=== PATIENT | male | born 1975 | race Two or more races ===

== ENCOUNTER 2016-12-02 06:41 | Emergency (ER) | payer BC ==
[~2016-12-02] VITALS: Ht 182.9 cm; Wt 120.4 kg
[~2016-12-02 06:41] MED LIST: CLIN300C OR; IBUP800T PO; TRAM50TA2 PO; VICO5TAB PO
[2016-12-02] MEDS ORDERED: ONDANSETRON 4MG/2ML VIAL (J2405) IV ONE (07:15)
[2016-12-02] MEDS ORDERED: NS 1,000 ML IV ONE (07:15)
[2016-12-02 07:41] LABS: BASO % 0.4 % (0.0-1.0); EOS # 0.1 K/mm3 (0.0-0.50); EOS % 1.2 % (0.0-3.0); LARGE UNSTAINED CELL # 0.1 K/mm3 (0.0-0.4); LARGE UNSTAINED CELL % 1.2 % (0.0-4.0); LYMPH # 0.9 K/mm3 (1.5-4.5); LYMPH % 12.2 % (24.0-44.0); MEAN CORPUSCULAR HEMOGLOBIN 29.5 pg (27.0-33.0); MEAN CORPUSCULAR VOLUME 86.8 fl (80.0-96.0); MONO # 0.4 K/mm3 (0.0-0.8); MONO % 5.8 % (0.0-5.0); NEUTROPHILS % 79.2 % (36.0-66.0); PLATELET COUNT, AUTOMATED 241 k/mm3 (150-450); WHITE BLOOD COUNT 7.6 K/mm3 (4.0-10.0)
[2016-12-02 07:44] LABS: ALBUMIN 3.7 GM/DL (3.2-5.2); ALBUMIN/GLOBULIN RATIO 1.16 (1.00-1.93); ALKALINE PHOSPHATASE 55 U/L (45-117); ALT/SGPT 33 U/L (12-78); ANION GAP 8 MEQ/L (8-16); AST/SGOT 19 U/L (15-37); BILIRUBIN,DIRECT 0.2 MG/DL (0.0-0.2); BILIRUBIN,TOTAL 0.7 MG/DL (0.2-1.0); BLOOD UREA NITROGEN 14 MG/DL (7-18); CALCIUM LEVEL 8.7 MG/DL (8.5-10.1); CARBON DIOXIDE LEVEL 26 MEQ/L (21-32); CHLORIDE LEVEL 109 MEQ/L (98-107); CREATININE FOR GFR 0.97 MG/DL (0.70-1.30); GLOMERULAR FILTRATION RATE > 60.0 (>60); GLUCOSE, FASTING 92 MG/DL (70-105); POTASSIUM SERUM 4.2 MEQ/L (3.5-5.1); SODIUM LEVEL 143 MEQ/L (136-145); TOTAL PROTEIN 6.9 GM/DL (6.4-8.2)
--- NOTE | 2016-12-02 08:18 | REP ---
Emergency scrotal ultrasound for right testicular pain: The testes are normal size. Right testis measures 4.8 x 2.5 x 3.7 cm. Left testis measures 4.8 x 2.1 x 3.8 cm. The testicular parenchyma is homogeneous bilaterally. There are no testicular masses. There is vascular flow in both testes with the Doppler resistive index of the intraparenchymal arteries of the left testis measuring 0.50 and of the right testis 0.55. The the right and left epididymal heads are unremarkable. No epididymal head cysts. No evidence of increased vascular flow type the right and left epididymal head. I suspect there are bilateral varicoceles. Impression: There is vascular flow in both testes. There are no testicular masses. No hydrocele. No evidence of increased vascular flow to the right and left testes are right and left epididymi. A bilateral varicoceles are suspected. Signed by Lance Crabtree MD 12/02/2016 08:09 A
[2016-12-02] MEDS ORDERED: MORPHINE 4 MG/ML 1ML SYRINGE IV ONE (08:30)
--- NOTE | 2016-12-02 09:03 | REP ---
CT ABDOMEN AND PELVIS WITHOUT IV CONTRAST: CT abdomen and pelvis performed without oral or IV contrast, with sagittal and coronal reconstruction images also performed. The visualized lung bases show a mild to moderate right pleural effusion with adjacent atelectasis/infiltrate. The liver, gallbladder, spleen, adrenals and pancreas are grossly unremarkable. There is very mild right hydroureteronephrosis caused by a 5 mm calculus at the right ureterovesical junction. There is no abdominal aortic aneurysm. There is no adenopathy. There is no free air or free fluid. There is no evidence of appendicitis. There is sigmoid diverticulosis without evidence of acute diverticulitis. No pelvic mass is seen. IMPRESSION: There is a 5 mm calculus at the right ureterovesical junction causing very mild right hydroureteronephrosis. Mild to moderate right pleural effusion with mild adjacent right basilar atelectasis/infiltrate. Signed by Lance Mena MD 12/02/2016 05:05 P
[2016-12-02 09:31] LABS: MICROSCOPIC INDICATED? MAN YES (NO)
[2016-12-02 09:35] LABS: MICROSCOPIC EXAM PERFORMED
[2016-12-02 09:36] LABS: BACTERIA, URINE SMALL AMOUNT; HYALINE CAST, URINE NONE SEEN /lpf (0-1); RBC, URINE 15-20 /hpf (0-3); SQUAMOUS EPITHELIAL CELL URINE NONE SEEN /hpf (SMALL AMT); WBC, URINE 0-1 /hpf (0-3)
[2016-12-02] MEDS ORDERED: ONDA4TAB6 PO (09:56)
[2016-12-02] MEDS ORDERED: NORCOTAB PO (09:56)
[2016-12-02] MEDS ORDERED: FLOM5CAP PO (09:56)
[2016-12-02 10:08] VITALS: BP 125/69
== END 2016-12-02 10:10 | disposition home or self-care (01) ==
LOC: M ED 06:41
DX: N20.1 Calculus of ureter (principal); J90 Pleural effusion, not elsewhere classified; I86.1 Scrotal varices
CPT/HCPCS: 74176; 76870; 80048; 80076; 81000; 85025; 87086; 93976; 96361; 96374; 96375; 99283; J2405

== ENCOUNTER → 2016-12-16 | Outpatient (CLI) | payer BC ==
[~2016-12-16] MED LIST changes: +FLOM5CAP PO; +NORCOTAB PO; +ONDA4TAB6 PO
--- NOTE | 2016-12-16 15:54 | REP ---
Chest x-ray: Two views. History: Pleural effusion. Comparison CT study December 02, 2016. Findings: Frontal and lateral views of the chest do demonstrate blunting of the right lateral and posterior pleural angles consistent with a small right pleural effusion. Heart is not felt to be enlarged. Pulmonary vasculature is not increased. Pleural angles are sharp on the left. No hilar or mediastinal mass is seen. No bony destructive lesion is seen. Impression: Small right pleural effusion. Otherwise no acute disease. Signed by Len Layton MD 12/16/2016 04:59 P
== END ==
LOC: M ADAMS 13:42
PROVIDERS: ATTEND Family Medicine
DX: J90 Pleural effusion, not elsewhere classified (principal)

== ENCOUNTER → 2016-12-29 | Outpatient (REF) | payer BC ==
[2016-12-29 19:26] LABS: INR 0.9
== END ==
LOC: M SFHCADAM 15:12
PROVIDERS: ATTEND Family Medicine
DX: J90 Pleural effusion, not elsewhere classified (principal)

== ENCOUNTER → 2017-01-04 | Outpatient (CLI) | payer BC ==
[~2017-01-04] MED LIST changes: +ACETAMINOPHEN 325 MG TAB As Ordered ONE
[2017-01-04 13:11] LABS: LDH, BODY FLUID 247 U/L (NOT ESTABLISHED); TOTAL PROTEIN, BODY FLUID 5.1 G/DL (NOT ESTABLISHED)
[2017-01-04 15:21] LABS: RBC PLEURAL FLUID 16 (<10mm3 cells/uL); TNC PLEURAL FLUID 1988 cells/uL (0-20)
[2017-01-04 15:28] LABS: TOTAL PROTEIN 7.4 GM/DL (6.4-8.2)
[2017-01-04 15:31] LABS: BF DIFF IF INDICATED? YES (NO)
--- NOTE | 2017-01-04 15:32 | REP ---
ULTRASOUND GUIDED RIGHT THORACENTESIS: The procedure was performed under the direct supervision of Dr. Layton. The risks and benefits of the procedure were explained to the patient and informed consent was obtained. The right pleural effusion was localized using ultrasound guidance. The skin was prepped and draped in a sterile fashion. 1% lidocaine was used as a local anesthetic. Using ultrasound guidance an 8 Cameroonian multi-side hole catheter was inserted using Trocar technique. 230 mL of red tinged fluid was withdrawn and sent to the lab. The patient tolerated the procedure well and there were no immediate complications. After the appropriate amount of monitored convalescence the patient was discharged from the department. Reviewed by SENG Driscoll 01/04/2017 03:37 PEdited and Signed by Len Layton MD 01/04/2017 05:17 P
--- NOTE | 2017-01-04 16:43 | REP ---
Chest x-ray: Two views. History: Status post ultrasound-guided thoracentesis on the right. Comparison chest x-ray is December 16, 2016. Findings: The lungs are symmetrically aerated. Pleural angles are sharp on the current radiograph. The previously noted right pleural angle blunting is resolved. No infiltrate is seen. Heart is not enlarged. There is no evidence of pneumothorax. Impression: No complication identified. Signed by Len Layton MD 01/04/2017 04:34 P
[2017-01-05 09:07] LABS: CC BF DIFF EXAM CYTOCENTRIFUGE
== END | disposition home or self-care (01) ==
LOC: M RADPRO 11:36
PROVIDERS: ATTEND Family Medicine
DX: Z79.899 Other long term (current) drug therapy (principal); Z91.018 Allergy to other foods

== ENCOUNTER → 2017-05-05 | Outpatient (CLI) | payer BC | LOC: M ADAMS 14:25 | DX: J90 Pleural effusion, not elsewhere classified (principal) | CPT/HCPCS: 71046 ==

== ENCOUNTER 2017-05-10 16:38 | Emergency (ER) | payer BC ==
[2017-05-10 20:02] LABS: BASO # 0.1 10^3/uL (0.0-0.2); BASO % 0.6 % (0.0-1.0); EOS # 0.2 10^3/uL (0.0-0.50); EOS % 1.9 % (0.0-3.0); HEMATOCRIT 47.8 % (42.0-52.0); HEMOGLOBIN 16.3 g/dl (14.0-18.0); IMMATURE GRANULOCYTE # 0.1 10^3/uL (0-0); IMMATURE GRANULOCYTE % 0.6 % (0-0); LYMPH # 3.2 10^3/uL (1.5-4.5); LYMPH % 29.5 % (24.0-44.0); MEAN CORPUSCULAR HEMOGLOBIN 29.1 pg (27.0-33.0); MEAN CORPUSCULAR HGB CONC 34.1 g/dl (32.0-36.5); MEAN CORPUSCULAR VOLUME 85.4 fl (80.0-96.0); MONO % 8.9 % (0.0-5.0); NEUTROPHILS # 6.3 10^3/uL (1.8-7.7); NEUTROPHILS % 58.5 % (36.0-66.0); PLATELET COUNT, AUTOMATED 262 10^3/uL (150-450); WHITE BLOOD COUNT 10.8 10^3/uL (4.0-10.0)
[2017-05-10 20:16] LABS: SUSPECT SAMPLE POS FLAG
[2017-05-10 20:21] LABS: INR 0.92; PARTIAL THROMBOPLASTIN TIME 30.5 SECONDS (26.8-37.9); PROTHROMBIN TIME 12.4 SECONDS (12.4-14.5)
[2017-05-10 20:28] LABS: ALBUMIN 4.4 GM/DL (3.2-5.2); ALBUMIN/GLOBULIN RATIO 1.16 (1.00-1.93); ALKALINE PHOSPHATASE 57 U/L (45-117); ALT/SGPT 58 U/L (12-78); ANION GAP 6 MEQ/L (8-16); AST/SGOT 30 U/L (7-37); BILIRUBIN,DIRECT 0.1 MG/DL (0.0-0.2); BILIRUBIN,TOTAL 0.5 MG/DL (0.2-1.0); BLOOD UREA NITROGEN 18 MG/DL (7-18); CALCIUM LEVEL 9.1 MG/DL (8.5-10.1); CARBON DIOXIDE LEVEL 28 MEQ/L (21-32); CHLORIDE LEVEL 103 MEQ/L (98-107); CPK CREATINE PHOSPHOKINASE 334 U/L (39-308); CREATININE FOR GFR 0.95 MG/DL (0.70-1.30); GLOMERULAR FILTRATION RATE > 60.0 (>60); GLUCOSE, FASTING 89 MG/DL (70-105); POTASSIUM SERUM 4.3 MEQ/L (3.5-5.1); SODIUM LEVEL 137 MEQ/L (136-145); TOTAL PROTEIN 8.2 GM/DL (6.4-8.2); TROPONIN I < 0.02 NG/ML (< 0.10)
[2017-05-10 20:32] LABS: CK-MB VALUE MASS 8.4 NG/ML (0.0-3.6); MB/CK RELATIVE INDEX 2.51 (< OR =4); NT-PRO BNP 12 PG/ML (<125)
[2017-05-10] MEDS ORDERED: ISOVUE-370 76% 100ML VIAL (Q9967) As Ordered (20:56)
== END 2017-05-10 22:24 | disposition home or self-care (01) ==
LOC: M ED 16:38
DX: J90 Pleural effusion, not elsewhere classified (principal); M54.9 Dorsalgia, unspecified; G89.29 Other chronic pain; Z87.891 Personal history of nicotine dependence; Z88.8 Allergy status to other drugs, medicaments and biological substances
CPT/HCPCS: Q9967

== ENCOUNTER 2017-10-28 17:52 | Emergency (ER) | payer BC ==
[2017-10-28 19:04] LABS: BASO # 0.1 10^3/uL (0.0-0.2); BASO % 0.6 % (0.0-1.0); EOS # 0.2 10^3/uL (0.0-0.50); EOS % 1.7 % (0.0-3.0); HEMATOCRIT 45.1 % (42.0-52.0); HEMOGLOBIN 15.5 g/dl (13.5-17.5); IMMATURE GRANULOCYTE % 0.2 % (0-3.0); LYMPH # 1.4 10^3/uL (1.5-4.5); LYMPH % 16.6 % (24.0-44.0); MEAN CORPUSCULAR HEMOGLOBIN 29.4 pg (27.0-33.0); MEAN CORPUSCULAR HGB CONC 34.4 g/dl (32.0-36.5); MEAN CORPUSCULAR VOLUME 85.4 fl (80.0-96.0); MONO # 1.3 10^3/uL (0.0-0.8); MONO % 14.4 % (0.0-5.0); NEUTROPHILS # 5.8 10^3/uL (1.8-7.7); NEUTROPHILS % 66.5 % (36.0-66.0); PLATELET COUNT, AUTOMATED 211 10^3/uL (150-450); RED BLOOD COUNT 5.28 10^6/uL (4.30-6.10); RED CELL DISTRIBUTION WIDTH 13.3 % (11.5-14.5); WHITE BLOOD COUNT 8.7 10^3/uL (4.0-10.0)
[2017-10-28 19:20] LABS: INR 0.92; PROTHROMBIN TIME 12.5 SECONDS (12.1-14.4)
[2017-10-28 19:23] LABS: LACTIC ACID SEPSIS PROTOCOL 1.3 MMOL/L (0.4-2.0)
[2017-10-28 20:24] LABS: ALBUMIN 4.1 GM/DL (3.2-5.2); ALBUMIN/GLOBULIN RATIO 1.03 (1.00-1.93); ALKALINE PHOSPHATASE 57 U/L (45-117); ALT/SGPT 49 U/L (12-78); ANION GAP 8 MEQ/L (8-16); AST/SGOT 27 U/L (7-37); BILIRUBIN,DIRECT 0.1 MG/DL (0.0-0.2); BILIRUBIN,TOTAL 0.6 MG/DL (0.2-1.0); BLOOD UREA NITROGEN 13 MG/DL (7-18); CALCIUM LEVEL 8.5 MG/DL (8.5-10.1); CARBON DIOXIDE LEVEL 27 MEQ/L (21-32); CHLORIDE LEVEL 105 MEQ/L (98-107); CK-MB VALUE MASS 5.8 NG/ML (<3.6); CPK CREATINE PHOSPHOKINASE 449 U/L (39-308); CREATININE FOR GFR 1.08 MG/DL (0.70-1.30); GLOMERULAR FILTRATION RATE > 60.0 (>60); GLUCOSE, FASTING 89 MG/DL (70-100); MB/CK RELATIVE INDEX 1.29 (< OR =4); NT-PRO BNP 29 PG/ML (<125); POTASSIUM SERUM 3.7 MEQ/L (3.5-5.1); SODIUM LEVEL 140 MEQ/L (136-145); TOTAL PROTEIN 8.1 GM/DL (6.4-8.2); TROPONIN I < 0.02 NG/ML (< 0.10)
[2017-10-28] MEDS ORDERED: ISOVUE-370 76% 100ML VIAL (Q9967) As Ordered (20:31)
== END 2017-10-28 22:05 | disposition home or self-care (01) ==
LOC: M ED 17:52
DX: J06.9 Acute upper respiratory infection, unspecified (principal); R59.0 Localized enlarged lymph nodes; I51.7 Cardiomegaly; Z87.09 Personal history of other diseases of the respiratory system; M54.9 Dorsalgia, unspecified; Z87.442 Personal history of urinary calculi; Z87.891 Personal history of nicotine dependence; Z88.8 Allergy status to other drugs, medicaments and biological substances
CPT/HCPCS: Q9967

== ENCOUNTER 2019-07-25 11:25 | Emergency (ER) | payer BC, OTHER, SELFPAY ==
[~2019-07-25] VITALS: Ht 182.9 cm; Wt 139.4 kg
[~2019-07-25 11:25] MED LIST changes: -ACETAMINOPHEN 325 MG TAB As Ordered ONE; +FLOM0.4C39 PO; -FLOM5CAP PO; +HYDR-3715 PO; -NORCOTAB PO; +PROAAER10 INH; +TESS100C PO; +ZITHTAB PO
[2019-07-25] MEDS ORDERED: MUCINEX (11:35)
[2019-07-25 12:47] LABS: BASO # 0.1 10^3/uL (0.0-0.2); BASO % 0.6 % (0.0-1.0); EOS # 0.2 10^3/uL (0.0-0.5); EOS % 1.8 % (0.0-3.0); HEMATOCRIT 50.8 % (42.0-52.0); HEMOGLOBIN 16.9 g/dl (13.5-17.5); LYMPH # 1.3 10^3/uL (1.5-5.0); LYMPH % 11.3 % (24.0-44.0); MEAN CORPUSCULAR HEMOGLOBIN 28.8 pg (27.0-33.0); MEAN CORPUSCULAR HGB CONC 33.3 g/dl (32.0-36.5); MEAN CORPUSCULAR VOLUME 86.7 fl (80.0-96.0); MONO # 1.5 10^3/uL (0.0-0.8); MONO % 12.8 % (0.0-5.0); NEUTROPHILS # 8.7 10^3/uL (1.5-8.5); NEUTROPHILS % 72.9 % (36.0-66.0); PLATELET COUNT, AUTOMATED 234 10^3/uL (150-450); RED BLOOD COUNT 5.86 10^6/uL (4.30-6.10); WHITE BLOOD COUNT 11.9 10^3/uL (4.0-10.0)
--- NOTE | 2019-07-25 14:23 | REP ---
CHEST PORTABLE: AP portable view of the chest is performed and compared to a prior study of 05/10/2017. There appears to be cardiomegaly. Infiltrate is seen in the right lung base. There is a small amount of right pleural fluid or thickening. Left lung is clear. Mediastinal silhouette is unremarkable and unchanged. IMPRESSION: Right basilar infiltrate. Small amount of right pleural fluid or thickening. Cardiomegaly. Electronically Signed by Lance Mena MD 07/25/2019 03:10 P
[2019-07-25 14:41] VITALS: BP 146/80
[2019-07-25] MEDS ORDERED: AUGM12TA11 PO (14:50)
[2019-07-25] MEDS ORDERED: AZIT-12 PO (14:50)
--- NOTE | 2019-07-25 15:30 | REP ---
CT CHEST WITHOUT IV CONTRAST: CT chest performed without IV contrast. Sagittal and coronal reconstruction images are performed. Comparison made to a prior CT of the chest . There is mild elevation of the right hemidiaphragm. Linear scarring is seen in the right lung base. Mild scattered calcific densities are seen along the posterior pleura on the right. Focal ill-defined nodular opacity along the right posterior pleural surface inferiorly measures about 3.5 cm in maximum diameter. Findings are likely secondary to prior pleurodesis. A couple of tiny calcified granulomas are seen in the right lung. There is minimal scaring in the left lower lobe. The heart is not significantly enlarged. There is no axillary or mediastinal adenopathy. There is no thoracic aortic aneurysm. There is no pleural or pericardial effusion. In the visualized upper abdomen, there is a 2.4 cm gallstone seen in the gallbladder without other significant findings. There are mild degenerative changes of the spine. IMPRESSION: Mild scattered pleural calcifications posteriorly on the right with ill-defined pleural-based nodular opacity posteriorly and inferiorly on the right approximately 3.5 cm in maximum diameter. Findings are likely secondary to prior pleurodesis. Followup of the nodular opacity is recommended. Otherwise, there is mild fibrotic scarring bilaterally with a few tiny calcified granulomas in the right lung. Electronically Signed by Lance Mena MD 07/25/2019 03:50 P
--- NOTE | 2019-07-26 13:52 | ED PDOC ---
Post-Departure Follow-Up dr goetz faxed formal report of ct chest for fu William Marcelino MD Jul 26, 2019 13:52
== END 2019-07-25 15:14 | disposition home or self-care (01) ==
LOC: M ED 11:25
DX: R91.8 Other nonspecific abnormal finding of lung field (principal); J06.9 Acute upper respiratory infection, unspecified; Z88.8 Allergy status to other drugs, medicaments and biological substances; Z87.891 Personal history of nicotine dependence

== ENCOUNTER 2020-04-08 16:06 | Emergency (ER) | payer OTHER, SELFPAY ==
[~2020-04-08] VITALS: Ht 182.9 cm; Wt 134.7 kg
[~2020-04-08 16:06] MED LIST changes: +AUGM12TA11 PO; +AZIT-12 PO; +MUCINEX
[2020-04-08 16:47] LABS: BASO # 0.1 10^3/uL (0.0-0.2); BASO % 0.5 % (0.0-1.0); EOS # 0.1 10^3/uL (0.0-0.5); EOS % 1.4 % (0.0-3.0); HEMATOCRIT 49.7 % (42.0-52.0); HEMOGLOBIN 16.1 g/dl (13.5-17.5); LYMPH # 2.2 10^3/uL (1.5-5.0); LYMPH % 22.3 % (24.0-44.0); MEAN CORPUSCULAR HEMOGLOBIN 28.4 pg (27.0-33.0); MEAN CORPUSCULAR HGB CONC 32.4 g/dl (32.0-36.5); MEAN CORPUSCULAR VOLUME 87.7 fl (80.0-96.0); MONO # 0.9 10^3/uL (0.0-0.8); MONO % 8.9 % (0.0-5.0); NEUTROPHILS # 6.5 10^3/uL (1.5-8.5); NEUTROPHILS % 66.5 % (36.0-66.0); PLATELET COUNT, AUTOMATED 235 10^3/uL (150-450); RED BLOOD COUNT 5.67 10^6/uL (4.30-6.10); WHITE BLOOD COUNT 9.7 10^3/uL (4.0-10.0)
[2020-04-08 17:18] LABS: ALBUMIN 4.2 GM/DL (3.2-5.2); ALT/SGPT 47 U/L (12-78); BILIRUBIN,DIRECT 0.1 MG/DL (0.0-0.2); BILIRUBIN,TOTAL 0.4 MG/DL (0.2-1.0); BLOOD UREA NITROGEN 21 MG/DL (7-18); CALCIUM LEVEL 9.1 MG/DL (8.5-10.1); CARBON DIOXIDE LEVEL 30 MEQ/L (21-32); CHLORIDE LEVEL 105 MEQ/L (98-107); CK-MB VALUE MASS 8.6 NG/ML (<3.6); CPK CREATINE PHOSPHOKINASE 411 U/L (39-308); CREATININE FOR GFR 1.45 MG/DL (0.70-1.30); FREE T4 0.91 NG/DL (0.76-1.46); GLOMERULAR FILTRATION RATE 56.3 (>60); GLUCOSE, FASTING 88 MG/DL (70-100); MB/CK RELATIVE INDEX 2.09 (< OR =4); NT-PRO BNP 22 PG/ML (<125); SODIUM LEVEL 137 MEQ/L (136-145); TOTAL PROTEIN 8.2 GM/DL (6.4-8.2); TROPONIN I < 0.02 NG/ML (< 0.10)
[2020-04-08 17:22] LABS: RSV AMPLIFICATION NEGATIVE (NEGATIVE)
[2020-04-08] MEDS ORDERED: ISOVUE-370 76% 100ML VIAL As Ordered ONE (17:30)
--- NOTE | 2020-04-08 18:26 | REPVR ---
PROCEDURE INFORMATION: Exam: CT Angiography Chest With Contrast Exam date and time: 04/08/2020 5:38 PM Age: 45 years old Clinical indication: Chest pain; Additional info: Pleuritic R chest pain SOB TECHNIQUE: Imaging protocol: Computed tomographic angiography of the chest with intravenous contrast. 3D rendering (Not supervised by radiologist): MIP and/or 3D reconstructed images were created by the technologist. Radiation optimization: All CT scans at this facility use at least one of these dose optimization techniques: automated exposure control; mA and/or kV adjustment per patient size (includes targeted exams where dose is matched to clinical indication); or iterative reconstruction. Contrast material: ISO 370; Contrast volume: 100 ml; Contrast route: INTRAVENOUS (IV); COMPARISON: CT ANGIO CHEST 10/28/2017 8:36 PM FINDINGS: Pulmonary arteries: There is opacification of the pulmonary arteries with no evidence of pulmonary embolus. Aorta: There is opacification of the aorta which appears intact. Lungs: The left lung appears clear. There is a 1.4 cm oval nodular area right posterior lung base. At the right posterior gutter region of the lung there is a 3.6 cm x 2.5 cm round density new since 2018 which could be a malignant nodule. A round pneumonia is another consideration and CT guided biopsy of this area should be considered. Pleural space: There is no evidence of pneumothorax or pleural effusion. Heart: There is no evidence of pericardial effusion. There is moderate cardiomegaly. Lymph nodes: Lymphoid tissue noted at the right infrahilar region. Gallbladder and bile ducts: There is a 2.3 cm round marginally calcified gallstone in the neck of the gallbladder. Bones/joints: There is mild kyphosis of the thoracic spine and prominent bridging osteophytes. Soft tissues: Unremarkable. IMPRESSION: 1. No evidence of pulmonary embolus. 2. Moderate cardiomegaly. 3. 1.4 cm and 3.6 cm density at the right lung base could be related to a malignant neoplasm and recommend CT guided biopsy. 4. 2.3 cm gallstone. Electronically signed by: Fermín Benoit On 04/08/2020 18:26:27 PM
[2020-04-08 19:08] VITALS: O2SAT 97
[2020-04-08 19:30] VITALS: BP 161/97
--- NOTE | 2020-04-09 13:25 | ECGEPIP ---
[facility] - ED Test Date: 2020-04-08 Pat Name: MATTHEW RODRIGUES Department: Room: - Gender: Male Station Captain: delbert : 1975 Requested By: KAYLA Muñiz Order Number: [id number] Reading MD: Erick Hampton Measurements Intervals [place] Rate: 69 P: 27 NH: 150 QRS: 54 QRSD: 105 T: 58 QT: 355 QTc: 383 Interpretive Statements SINUS RHYTHM NSTTW ABNORMALITY(S) SIMILAR TO 10/28/17 Electronically Signed on 04-09-2020 13:25:32 EST by Erick Hampton
== END 2020-04-08 19:44 | disposition home or self-care (01) ==
LOC: M ED 16:06
DX: R91.8 Other nonspecific abnormal finding of lung field (principal); R06.02 Shortness of breath; Z87.09 Personal history of other diseases of the respiratory system; Z88.8 Allergy status to other drugs, medicaments and biological substances
CPT/HCPCS: 36415; 71275; 80048; 80076; 82550; 82553; 83880; 84439; 84443; 84484; 85025; 87631; 93005; 93041; 94760; 99285; Q9967

== ENCOUNTER 2020-04-30 08:03 | Emergency (ER) | payer OTHER ==
[~2020-04-30] VITALS: Ht 182.9 cm; Wt 124.9 kg
[2020-04-30] MEDS ORDERED: AUGM875T28 PO (08:39)
[2020-04-30] MEDS ORDERED: NS 1,000 ML IV ONE (09:15)
[2020-04-30] MEDS ORDERED: ACETAMINOPHEN 325 MG TAB PO ONE (09:15)
--- NOTE | 2020-04-30 09:35 | REP ---
INDICATION: DYSPNEA/COUGH. COMPARISON: Comparison study July 25, 2019. Comparison CT study April 08, 2020. TECHNIQUE: Portable sitting AP technique.. FINDINGS: The left lung remains well inflated and clear. There is pleuroparenchymal fibrosis in the right base and there is volume loss the right hemithorax. These findings are unchanged from comparison radiograph and comparison CT staging study. There is chronic pleuroparenchymal change in the right lung base. No new infiltrate. Heart is not enlarged.. IMPRESSION: Chronic volume loss and pleuroparenchymal changes right lung base. No new infiltrate.. <Electronically signed by Jn Layton > 04/30/20 0931
[2020-04-30 10:08] LABS: BASO % 0.3 % (0.0-1.0); EOS # 0.1 10^3/uL (0.0-0.5); EOS % 1.4 % (0.0-3.0); HEMATOCRIT 52.9 % (42.0-52.0); HEMOGLOBIN 17.5 g/dl (13.5-17.5); LYMPH # 1.3 10^3/uL (1.5-5.0); LYMPH % 34.2 % (24.0-44.0); MEAN CORPUSCULAR HEMOGLOBIN 29.2 pg (27.0-33.0); MEAN CORPUSCULAR HGB CONC 33.1 g/dl (32.0-36.5); MEAN CORPUSCULAR VOLUME 88.3 fl (80.0-96.0); MONO # 0.5 10^3/uL (0.0-0.8); MONO % 13.9 % (0.0-5.0); NEUTROPHILS # 1.8 10^3/uL (1.5-8.5); NEUTROPHILS % 49.9 % (36.0-66.0); PLATELET COUNT, AUTOMATED 188 10^3/uL (150-450); RED BLOOD COUNT 5.99 10^6/uL (4.30-6.10); WHITE BLOOD COUNT 3.7 10^3/uL (4.0-10.0)
[2020-04-30] MEDS ORDERED: LOSA50TA88 (10:25)
[2020-04-30 10:38] LABS: ALBUMIN 4.1 GM/DL (3.2-5.2); ALT/SGPT 208 U/L (12-78); BILIRUBIN,DIRECT 0.1 MG/DL (0.0-0.2); BILIRUBIN,TOTAL 0.5 MG/DL (0.2-1.0); BLOOD UREA NITROGEN 12 MG/DL (7-18); CALCIUM LEVEL 8.7 MG/DL (8.5-10.1); CARBON DIOXIDE LEVEL 29 MEQ/L (21-32); CHLORIDE LEVEL 105 MEQ/L (98-107); CK-MB VALUE MASS 5.3 NG/ML (<3.6); CPK CREATINE PHOSPHOKINASE 253 U/L (39-308); CREATININE FOR GFR 0.94 MG/DL (0.70-1.30); GLOMERULAR FILTRATION RATE > 60.0 (>60); GLUCOSE, FASTING 93 MG/DL (70-100); MB/CK RELATIVE INDEX 2.09 (< OR =4); NT-PRO BNP 14 PG/ML (<125); POTASSIUM SERUM 4.2 MEQ/L (3.5-5.1); SODIUM LEVEL 138 MEQ/L (136-145); THYROXINE (T4) 7.1 UG/DL (4.5-12.0); TROPONIN I < 0.02 NG/ML (< 0.10)
[2020-04-30 10:53] LABS: C REACTIVE PROTEIN QUANTITATIV < 0.30 MG/DL (0.00-0.30); FERRITIN 127 NG/ML (26-388); LDH LACTATE DEHYDROGENASE 222 U/L (87-241)
[2020-04-30 11:28] VITALS: O2SAT 99
[2020-04-30] MEDS ORDERED: ISOVUE-370 76% 100ML VIAL As Ordered ONE (11:37)
[2020-04-30 11:45] VITALS: BP 164/96
[2020-04-30] MEDS ORDERED: LOSARTAN 50MG TABLET PO ONE (11:45)
--- NOTE | 2020-04-30 12:10 | REP ---
INDICATION: R lower pleuritic CP, h/o lung nodules, +COVID COMPARISON: 04/08/2020, 07/25/2019, 10/28/2017 TECHNIQUE: Axial contrast enhanced images from the thoracic inlet to the upper abdomen using pulmonary embolus technique with multiplanar re-formations. 75 ml Isovue 370 intravenous contrast material administered without complication. This CT examination was performed using the following dose reduction techniques: Automated exposure control, adjustment of mA and/or kv according to the patient's size, and use of iterative reconstruction technique. FINDINGS: There is no evidence for pulmonary embolus. Thoracic aorta is without aneurysm or dissection. Heart and pericardium are normal. The left hemithorax is well aerated and clear. The right hemithorax demonstrates volume loss with chronic appearing pleuroparenchymal changes including suspected 3.5 cm subpleural opacity in the posterior right sulcus suggesting chronic rounded atelectasis all of which may be related to the given history of prior talc pleurodesis. No significant adenopathy. Tracheobronchial tree is relatively patent. Surrounding musculoskeletal structures are intact. Upper abdomen demonstrates normal bilateral adrenal glands and suggestions for cholelithiasis. IMPRESSION: 1. No evidence for pulmonary embolus. Normal thoracic aorta. 2. Chronic volume loss and pleuroparenchymal changes involving the right hemithorax including 3.5 cm subpleural opacity at the right sulcus suggesting chronic rounded atelectasis. Findings appear relatively unchanged through 07/25/2019. <Electronically signed by Gabe Ewing > 04/30/20 0119
[2020-04-30] MEDS ORDERED: PROAAER10 INH (12:56)
[2020-04-30 13:17] VITALS: BP 160/98
--- NOTE | 2020-05-01 21:23 | ECGEPIP ---
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
== END 2020-04-30 13:20 | disposition home or self-care (01) ==
LOC: M ED 08:03
DX: U07.1 COVID-19 (principal); R91.8 Other nonspecific abnormal finding of lung field; I10 Essential (primary) hypertension; Z87.09 Personal history of other diseases of the respiratory system; Z79.899 Other long term (current) drug therapy; Z88.8 Allergy status to other drugs, medicaments and biological substances
CPT/HCPCS: 36415; 71045; 71275; 80048; 80076; 82550; 82553; 82728; 83605; 83615; 83880; 84436; 84443; 84484; 85025; 85379; 86140; 87040; 87486; 87581; 87633; 87798; 93005; 93041; 94760; 99284; Q9967

== ENCOUNTER → 2020-06-18 | Outpatient (CLI) | payer OTHER ==
[~2020-06-18] MED LIST changes: +AUGM875T28 PO; +LOSA50TA88
== END ==
LOC: M PLALAB 14:57
PROVIDERS: ATTEND Internal Medicine Pulmonary Disease
DX: R91.8 Other nonspecific abnormal finding of lung field (principal)

== ENCOUNTER 2020-06-24 18:29 | Emergency (ER) | payer OTHER ==
[~2020-06-24] VITALS: Ht 182.9 cm; Wt 133.1 kg
[2020-06-24] MEDS ORDERED: PRED10TA2 (18:38)
[2020-06-24] MEDS ORDERED: ADVA230A (18:38)
--- NOTE | 2020-06-24 19:19 | REP ---
INDICATION: DYSPNEA/COUGH. COMPARISON: 04/30/2020, 07/25/2019. TECHNIQUE: SINGLE PORTABLE AP VIEW OF THE CHEST WAS PERFORMED. FINDINGS: There is chronic parenchymal opacity in the right base, unchanged.The heart and mediastinum are unchanged. Left lung is clear. IMPRESSION: Stable chronic changes on the right. No definite superimposed acute infiltrate. <Electronically signed by Lance Mena > 06/24/201913
[2020-06-24 19:54] LABS: BASO % 0.3 % (0.0-1.0); EOS # 0.1 10^3/uL (0.0-0.5); EOS % 0.7 % (0.0-3.0); HEMOGLOBIN 15.2 g/dl (13.5-17.5); LYMPH # 2.3 10^3/uL (1.5-5.0); MEAN CORPUSCULAR HEMOGLOBIN 28.8 pg (27.0-33.0); MEAN CORPUSCULAR VOLUME 87.1 fl (80.0-96.0); MONO # 1.1 10^3/uL (0.0-0.8); MONO % 10.2 % (2.0-8.0); NEUTROPHILS % 66.5 % (36.0-66.0); PLATELET COUNT, AUTOMATED 246 10^3/uL (150-450); RED BLOOD COUNT 5.28 10^6/uL (4.30-6.10); WHITE BLOOD COUNT 10.5 10^3/uL (4.0-10.0)
[2020-06-24] MEDS ORDERED: DOXY100C37 PO (20:01)
[2020-06-24] MEDS ORDERED: DOXYCYCLINE HYCLATE 100MG TABLET PO ONE (20:45)
[2020-06-24 20:55] VITALS: BP 159/91
--- NOTE | 2020-06-26 07:52 | ECGEPIP ---
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
== END 2020-06-24 21:05 | disposition home or self-care (01) ==
LOC: M ED 18:29
DX: R05 Cough (principal); R06.02 Shortness of breath; Z88.8 Allergy status to other drugs, medicaments and biological substances; Z91.018 Allergy to other foods

== ENCOUNTER → 2020-07-06 | Outpatient (CLI) | payer OTHER ==
[~2020-07-06] MED LIST changes: +ADVA230A; +DOXY100C37 PO; +PRED10TA2
--- NOTE | 2020-07-07 09:52 | REP ---
INDICATION: DIAGNOSING LUNG NODULE R91.1. Recurrent right pleural effusion status post talc pleurodesis. History of resection of a soft tissues are, from the right leg. COMPARISON: Comparison chest CT studies are reviewed dated April 30, 2020, April 08, 2020, July 25, 2019, and October 28, 2017.. TECHNIQUE: Sixty minutes following the intravenous injection of a 18.30 mCi dose of F-18 FDG, three-dimensional PET scintigraphy is acquired from the skull base to the proximal thighs. Triplanar noncontrast CT scanning is acquired through the same anatomic range for attenuation correction, and image registration with scan parameters optimized to minimize radiation exposure to the patient. PET scintigraphy and CT datasets were fused and displayed on a workstation with multiplanar and projection display capability. FINDINGS: No abnormal head and neck soft tissue uptake is seen. There are multiple hypermetabolic nodular and linear foci of pleural uptake in the right chest. This is a well-known finding in patients post talc pleurodesis because of ongoing foreign body granulation reaction. Maximum standard uptake value in these multifocal small areas of hypermetabolic uptake ranges from 5.41-11.62. The most avid reaction is in the right posterior lung gutter but this is not related to the 3 cm parenchymal density in the right lower lobe which is above the area of uptake. Maximum SUV value in the right lower lobe parenchymal opacity is 2.67 which is felt to be borderline. This is most likely an area of rounded atelectasis. No hypermetabolic parenchymal uptake lesion is seen. No left-sided pleural lesion is apparent. No mediastinal or hilar thaddeus uptake is appreciated. In the abdomen and pelvis, normal hepatic, splenic, gastrointestinal, and genitourinary FDG accumulation is seen. IMPRESSION: Multiple small foci of hypermetabolic pleural uptake in the right chest consistent with on going foreign body granulation reaction post talc pleurodesis. The 3 cm opacity in the parenchyma of the right lower lobe seen on recent chest CTs shows borderline uptake and is felt to be most compatible with spiral atelectasis. Continued CT follow-up is recommended. <Electronically signed by Jn Layton > 07/07/20 0948
== END ==
LOC: M PLARAD 14:05
PROVIDERS: ATTEND Internal Medicine Pulmonary Disease
DX: R91.1 Solitary pulmonary nodule (principal)

== ENCOUNTER → 2020-07-13 | Outpatient (REF) | payer OTHER ==
[2020-07-13 18:03] LABS: PLATELET COUNT, AUTOMATED 236 10^3/uL (150-450)
[2020-07-13 18:19] LABS: INR 0.95; PROTHROMBIN TIME 12.8 SECONDS (12.5-14.3)
[2020-07-13 18:20] LABS: PARTIAL THROMBOPLASTIN TIME 31.5 SECONDS (24.2-38.5)
== END ==
LOC: M LAB REF 16:42
PROVIDERS: ATTEND Internal Medicine Pulmonary Disease
DX: R91.1 Solitary pulmonary nodule (principal)

== ENCOUNTER → 2020-07-22 | Outpatient (CLI) | payer OTHER ==
[~2020-07-22] MED LIST changes: +ACET-897 PO; -ADVA230A; +ADVA230A INH; +DAYT1LIQ PO; +DEXT118S PO; +LIDOCAINE 1% MDV 20ML VIAL As Ordered ONE; -LOSA50TA88; +LOSA50TA88 PO; +LOSARTAN 50MG TABLET PO ONE; +MUCI600T31 PO; +PERC5TAB12 PO; +SODIUM BICARBONATE 8.4% INJ 50MEQ 50 ML VIAL As Ordered ONE; +VENTAER INH
--- NOTE | 2020-07-22 10:14 | REP ---
INDICATION: POST RIGHT LUNG BIOPSY, 1 VIEW, PA INSPIRATION. COMPARISON: 06/24/2020. TECHNIQUE: PA view chest. FINDINGS: There is no radiographic evidence of a significant pneumothorax status post right lung biopsy. The lungs are unchanged in appearance. The heart mediastinum are unchanged. IMPRESSION: No radiographic evidence of significant pneumothorax status post right lung biopsy. <Electronically signed by Lance Mena > 07/22/20 1010
--- NOTE | 2020-07-22 11:52 | REP ---
INDICATION: POST RIGHT LUNG BIOPSY, 1 VIEW, PA EXPIRATION. COMPARISON: 07/23/2019, 9:57 a.m.. TECHNIQUE: Single PA view chest in expiration. FINDINGS: There is no pneumothorax status post right lung biopsy. Very mild atelectatic changes are seen in each lung base. Remainder of the study is unchanged. IMPRESSION: No pneumothorax status post right lung biopsy. <Electronically signed by Lance Mena > 07/22/20 1144
[2020-07-22 12:02] VITALS: BP 168/87
--- NOTE | 2020-07-22 17:42 | REP ---
INDICATION: RT LOWER LOBE OPACITY. COMPARISON: None. TECHNIQUE: The procedure is performed by Christine Nascimento [facility], under the direct supervision of Dr. Mena. The risks and benefits of the procedure were explained to the patient and informed consent was obtained both orally and written. Directly prior to the start of the procedure, a formal timeout was done in the exam room. The right lower lobe lung mass was localized using CT guidance. Skin was prepped and draped in the usual sterile fashion. Five ml of buffered lidocaine was used as a local anesthetic. FINDINGS: Using CT guidance a 19/20 gauge coaxial needle biopsy system was inserted and advanced into the nodule. Six core biopsy samples were obtained and sent to the lab. CT images obtained directly after the biopsy show evidence of a small pneumothorax. This pneumothorax was followed with serial chest x-rays taken directly after the procedure and 2 hours after that. After the appropriate amount of monitored convalescence the patient was discharged from the department. IMPRESSION: CT-guided right lower lobe lung biopsy. <Electronically signed by Christine Nascimento > 07/22/20 [id number] <Electronically signed by Lance Mena > 07/22/20 [id number]
== END ==
LOC: M IRPRO 08:05
PROVIDERS: ATTEND Internal Medicine Pulmonary Disease
DX: J94.8 Other specified pleural conditions (principal)

== ENCOUNTER 2020-07-23 12:50 | Emergency (ER) | payer OTHER ==
[~2020-07-23] VITALS: Ht 182.9 cm; Wt 131.7 kg
[~2020-07-23 12:50] MED LIST changes: -ACET-897 PO; -LIDOCAINE 1% MDV 20ML VIAL As Ordered ONE; -LOSARTAN 50MG TABLET PO ONE; -PERC5TAB12 PO; -SODIUM BICARBONATE 8.4% INJ 50MEQ 50 ML VIAL As Ordered ONE
[2020-07-23] MEDS ORDERED: ACET-897 PO (13:00)
--- NOTE | 2020-07-23 13:44 | REP ---
INDICATION: SOB, right lung biopsy 07/22/20. COMPARISON: 07/22/2020. TECHNIQUE: SINGLE PORTABLE AP VIEW OF THE CHEST WAS PERFORMED. FINDINGS: Pleural and parenchymal changes in the right lung base are stable. There is no pneumothorax. I see no evidence of acute infiltrate. The heart and mediastinum are unchanged. IMPRESSION: Stable exam. <Electronically signed by Lance Mena > 07/23/20 [id number]
[2020-07-23] MEDS ORDERED: ONDANSETRON 4MG/2ML VIAL IV ONE (14:15)
[2020-07-23] MEDS ORDERED: ISOVUE-370 76% 100ML VIAL As Ordered ONE (14:37)
[2020-07-23 14:44] LABS: BASO # 0.1 10^3/uL (0.0-0.2); BASO % 0.7 % (0.0-1.0); EOS # 0.2 10^3/uL (0.0-0.5); EOS % 1.8 % (0.0-3.0); HEMATOCRIT 50.6 % (42.0-52.0); HEMOGLOBIN 17.1 g/dl (13.5-17.5); LYMPH # 1.8 10^3/uL (1.5-5.0); MEAN CORPUSCULAR HEMOGLOBIN 29.8 pg (27.0-33.0); MEAN CORPUSCULAR HGB CONC 33.8 g/dl (32.0-36.5); MEAN CORPUSCULAR VOLUME 88.2 fl (80.0-96.0); MONO # 0.8 10^3/uL (0.0-0.8); MONO % 9.6 % (2.0-8.0); NEUTROPHILS # 5.5 10^3/uL (1.5-8.5); NEUTROPHILS % 65.4 % (36.0-66.0); PLATELET COUNT, AUTOMATED 218 10^3/uL (150-450); RED BLOOD COUNT 5.74 10^6/uL (4.30-6.10); WHITE BLOOD COUNT 8.3 10^3/uL (4.0-10.0)
[2020-07-23] MEDS: MORPHINE 4 MG/ML 1ML VIAL/SYRINGE (J2270) IV PRN ×2 (14:57→15:51)
--- NOTE | 2020-07-23 15:28 | REP ---
INDICATION: CP. COMPARISON: 04/30/2020, 04/08/2020, 07/25/2019, 10/28/2017. TECHNIQUE: CT angiogram chest performed following the intravenous administration of 75 cc of Isovue 370. Sagittal and coronal reconstruction images are performed with standard and MIP reformats presented.. FINDINGS: Lungs: Chronic volume loss in the right hemithorax as noted on multiple previous studies. Some chronic pleural thickening in the deep sulcus right lower lobe and calcification. Soft tissue density in curvilinear fibrotic changes in the deep sulcus right lower lobe noted curving towards the hilum is also curvilinear fibrotic change lateral segment the right middle lobe stable. Some minor dependent atelectatic changes are noted posteriorly on the right as well. All of this is unchanged. The left lung shows some compensatory hyperinflation but is clear except for some minor linear fibro atelectatic change inferior lingular segment left upper lobe adjacent to left heart border and a prominent epicardial fat pad. Mediastinum: Subcentimeter nodes are present without pathologic sized mediastinal adenopathy. Pulmonary arteries: No evidence of pulmonary embolism. Fay: No pathologic sized adenopathy. Axilla: No pathologic sized adenopathy. Pleura: No definite effusion. Pleural thickening and some calcifications inferiorly near the chronic opacity in the right lower lobe this may be related to a previously stated history of a talc pleurodesis or calcification in pleura in a patient with rounded atelectasis. No new pleural finding. Heart: Not enlarged. No pericardial thickening or effusion. Thoracic aorta: No aneurysm or dissection. Upper abdominal structures: There is no hiatal hernia. Visualized structures in the upper abdomen show the gallbladder in part with a rim calcified gallstones seen near its the dependent portion. A portion of pancreas included unremarkable. Adrenal glands unremarkable. Visualized spleen and upper pole left kidney intact. Bowel loops without acute finding. Visualized osseous structures: The sternum, manubrium, medial clavicles, scapulae, small portions of the visualized humeral heads, the ribs and spine are without acute findings. IMPRESSION: No CT evidence of pulmonary embolism. Chronic pleural thickening and calcification posteriorly in the right lower lung zone without pleural effusion, new pleural findings and all of this may be related to the previous history provided of talc pleurodesis. There is also rounded opacity with curvilinear fibrotic changes extending towards the hilum in the right lower lobe most consistent with rounded atelectasis. It is unchanged over the past year. No aortic aneurysm or dissection. No pathologic sized adenopathy. No acute bony finding. Stable exam from 04/30/2020. <Electronically signed by Darrion Mijares > 07/23/20 [id number]
[2020-07-23] MEDS ORDERED: HYDROMORPHONE HCL 0.5 MG/ 0.5 ML SYRINGE (J1170 PER 1) IV PRN (15:45)
[2020-07-23] MEDS ORDERED: PERC5TAB12 PO (16:48)
[2020-07-23 17:35] VITALS: BP 157/97
--- NOTE | 2020-07-24 06:34 | ECGEPIP ---
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
== END 2020-07-23 17:41 | disposition home or self-care (01) ==
LOC: M ED 12:50
DX: R07.9 Chest pain, unspecified (principal); Z79.51 Long term (current) use of inhaled steroids; Z79.891 Long term (current) use of opiate analgesic; Z79.899 Other long term (current) drug therapy; Z88.6 Allergy status to analgesic agent; Z91.02 Food additives allergy status
CPT/HCPCS: 36415; 71045; 71275; 80047; 85025; 93005; 96374; 96375; 99284; J1170; J2270; J2405; Q9967

== ENCOUNTER 2020-10-21 07:28 | Emergency (ER) | payer OTHER ==
[~2020-10-21] VITALS: Ht 182.9 cm; Wt 129.8 kg
[~2020-10-21 07:28] MED LIST changes: +ACET-897 PO; -DOXY100C37 PO; +DOXY1CAP62 PO; +PERC5TAB12 PO
[2020-10-21 09:18] LABS: VENOUS BASE EXCESS -0.1 (-2.0-2.0); VENOUS HCO3 25.9 MEQ/L (23.0-27.0); VENOUS O2 SATURATION 74.8 % (60.0-80.0); VENOUS PARTIAL PRESSURE CO2 46.8 mmHg (38.0-50.0); VENOUS PARTIAL PRESSURE O2 35.8 mmHg (30.0-50.0); VENOUS PH 7.361 UNITS (7.330-7.430); VENOUS STANDARD HCO3 23.8 MEQ/L; VENOUS TOTAL CO2 27.3 MEQ/L (24.0-28.0)
[2020-10-21 09:23] LABS: BASO % 0.5 % (0.0-1.0); EOS % 0.3 % (0.0-3.0); HEMATOCRIT 47.9 % (42.0-52.0); HEMOGLOBIN 16.2 g/dl (13.5-17.5); LYMPH # 0.9 10^3/uL (1.5-5.0); LYMPH % 13.6 % (24.0-44.0); MEAN CORPUSCULAR HEMOGLOBIN 29.7 pg (27.0-33.0); MEAN CORPUSCULAR HGB CONC 33.8 g/dl (32.0-36.5); MEAN CORPUSCULAR VOLUME 87.9 fl (80.0-96.0); MONO # 0.8 10^3/uL (0.0-0.8); MONO % 12.5 % (2.0-8.0); NEUTROPHILS # 4.8 10^3/uL (1.5-8.5); NEUTROPHILS % 72.8 % (36.0-66.0); PLATELET COUNT, AUTOMATED 188 10^3/uL (150-450); RED BLOOD COUNT 5.45 10^6/uL (4.30-6.10); WHITE BLOOD COUNT 6.6 10^3/uL (4.0-10.0)
[2020-10-21 09:34] LABS: INR 0.92; PROTHROMBIN TIME 12.5 SECONDS (12.5-14.3)
[2020-10-21 09:36] LABS: D-DIMER QUANT 576.1 ng/ml (<500)
--- NOTE | 2020-10-21 09:43 | REP ---
INDICATION: DYSPNEA/COUGH COMPARISON: 07/23/2020 TECHNIQUE: Portable AP view of the chest FINDINGS: Evaluation is limited by portable technique, positioning and underpenetration. The left hemithorax is well aerated and clear. Mediastinum and right hemithorax appear relatively stable. Chronic right-sided pleuroparenchymal changes are suspected and subtle superimposed process cannot definitively be excluded. IMPRESSION: No significant change from prior examination. Chronic right-sided pleuroparenchymal changes. No definite acute process. <Electronically signed by Gabe Ewing > 10/21/20 0982
[2020-10-21 10:01] LABS: BLOOD UREA NITROGEN 13 MG/DL (7-18); CALCIUM LEVEL 9.2 MG/DL (8.5-10.1); CARBON DIOXIDE LEVEL 26 MEQ/L (21-32); CHLORIDE LEVEL 105 MEQ/L (98-107); CK-MB VALUE MASS 2.6 NG/ML (<3.6); CPK CREATINE PHOSPHOKINASE 295 U/L (39-308); CREATININE FOR GFR 0.92 MG/DL (0.70-1.30); GLOMERULAR FILTRATION RATE > 60.0 (>60); GLUCOSE, FASTING 94 MG/DL (70-100); MB/CK RELATIVE INDEX 0.88 (< OR =4); NT-PRO BNP 67 PG/ML (<125); POTASSIUM SERUM 4.5 MEQ/L (3.5-5.1); SODIUM LEVEL 139 MEQ/L (136-145); THYROXINE (T4) 6.5 UG/DL (4.5-12.0); TROPONIN I < 0.02 NG/ML (< 0.10)
--- NOTE | 2020-10-21 11:25 | ECGEPIP ---
[facility] - ED Test Date: 2020-10-21 Pat Name: MATTHEW RODRIGUES Department: Room: - Gender: Male Supply Person: eduard : 1975 Requested By: ELSY Cole PA-C Order Number: [id number] Reading MD: Agnes Boyd Measurements Intervals [place] Rate: 73 P: -16 ND: 132 QRS: 37 QRSD: 98 T: 25 QT: 366 QTc: 403 Interpretive Statements Normal sinus rhythm Nonspecific T wave abnormality similar 07/23/20 Electronically Signed on 10-21-2020 11:25:22 EDT by Agnes Boyd
[2020-10-21] MEDS ORDERED: ACETAMINOPHEN 500 MG TAB PO ONE (11:30)
[2020-10-21] MEDS ORDERED: ISOVUE-370 76% 100ML VIAL As Ordered ONE (11:58)
--- NOTE | 2020-10-21 12:18 | REP ---
INDICATION: elevated d dimer, pleuritc CP, SOB, RO PE, hx nodules R COMPARISON: Multiple examinations dating through 04/08/2020 TECHNIQUE: Axial contrast enhanced images from the thoracic inlet to the upper abdomen using pulmonary embolus technique with multiplanar re-formations. 75 ml Isovue 370 intravenous contrast material administered without complication. This CT examination was performed using the following dose reduction techniques: Automated exposure control, adjustment of mA and/or kv according to the patient's size, and use of iterative reconstruction technique. FINDINGS: Satisfactory enhancement of the pulmonary vasculature is achieved and no filling defects are identified to suggest pulmonary embolus. Further evaluation of the mediastinum demonstrates normal thoracic aorta, heart and pericardium. Right hemithorax demonstrates chronic volume loss and pleuroparenchymal changes including scattered scarring and areas of rounded atelectasis along with chronic pleural reaction. These findings are relatively stable as compared to prior examination. The left hemithorax is well aerated and essentially clear. No acute consolidation, new nodule or mass. No effusion or pneumothorax. No significant axillary, hilar, or mediastinal adenopathy. IMPRESSION: 1. No evidence for pulmonary embolus. 2. Chronic volume loss and pleuroparenchymal changes involving the right hemithorax including areas of scarring and rounded atelectasis essentially unchanged through 04/08/2020 <Electronically signed by Gabe Ewing > 10/21/20 [id number]
[2020-10-21 13:04] VITALS: BP 144/76
== END 2020-10-21 13:06 | disposition home or self-care (01) ==
LOC: M ED 07:28
DX: R06.02 Shortness of breath (principal); R05 Cough; R50.9 Fever, unspecified; I10 Essential (primary) hypertension; J44.9 Chronic obstructive pulmonary disease, unspecified; Z87.09 Personal history of other diseases of the respiratory system; Z87.442 Personal history of urinary calculi; Z88.8 Allergy status to other drugs, medicaments and biological substances; Z91.018 Allergy to other foods; Z79.899 Other long term (current) drug therapy
CPT/HCPCS: 36415; 71045; 71275; 80048; 82550; 82553; 82803; 83605; 83880; 84436; 84443; 84484; 85025; 85379; 85610; 87040; 87798; 93005; 99284; Q9967

== ENCOUNTER → 2020-11-10 | Outpatient (REF) | payer OTHER ==
[~2020-11-10] MED LIST changes: +KETO10TAB PO
[2020-11-10 17:36] LABS: BASO # 0.1 10^3/uL (0.0-0.2); BASO % 0.6 % (0.0-1.0); EOS # 0.1 10^3/uL (0.0-0.5); EOS % 1.2 % (0.0-3.0); HEMATOCRIT 44.8 % (42.0-52.0); HEMOGLOBIN 14.9 g/dl (13.5-17.5); LYMPH # 1.4 10^3/uL (1.5-5.0); LYMPH % 16.3 % (24.0-44.0); MEAN CORPUSCULAR HEMOGLOBIN 29.1 pg (27.0-33.0); MEAN CORPUSCULAR HGB CONC 33.3 g/dl (32.0-36.5); MEAN CORPUSCULAR VOLUME 87.5 fl (80.0-96.0); MONO # 0.9 10^3/uL (0.0-0.8); MONO % 10.5 % (2.0-8.0); NEUTROPHILS # 6.1 10^3/uL (1.5-8.5); NEUTROPHILS % 70.8 % (36.0-66.0); PLATELET COUNT, AUTOMATED 273 10^3/uL (150-450); RED BLOOD COUNT 5.12 10^6/uL (4.30-6.10); WHITE BLOOD COUNT 8.6 10^3/uL (4.0-10.0)
[2020-11-10 18:01] LABS: ERYTHROCYTE SEDIMENTATION RATE 13 mm/hr (0-15)
[2020-11-10 18:19] LABS: ALBUMIN 3.9 GM/DL (3.2-5.2); ALT/SGPT 40 U/L (12-78); BILIRUBIN,TOTAL 0.6 MG/DL (0.2-1.0); BLOOD UREA NITROGEN 19 MG/DL (7-18); CALCIUM LEVEL 8.8 MG/DL (8.5-10.1); CARBON DIOXIDE LEVEL 25 MEQ/L (21-32); CHLORIDE LEVEL 105 MEQ/L (98-107); CREATININE FOR GFR 0.84 MG/DL (0.70-1.30); FERRITIN 133 NG/ML (26-388); GLOMERULAR FILTRATION RATE > 60.0 (>60); GLUCOSE, FASTING 73 MG/DL (70-100); POTASSIUM SERUM 3.8 MEQ/L (3.5-5.1); SODIUM LEVEL 138 MEQ/L (136-145); TOTAL PROTEIN 7.6 GM/DL (6.4-8.2)
== END ==
LOC: M SFHCRHEU 15:24
PROVIDERS: ATTEND Internal Medicine Rheumatology
DX: J90 Pleural effusion, not elsewhere classified (principal); R76.8 Other specified abnormal immunological findings in serum

== ENCOUNTER 2020-11-11 21:12 | Emergency (ER) | payer OTHER ==
[~2020-11-11] VITALS: Ht 182.9 cm; Wt 131.0 kg
[~2020-11-11 21:12] MED LIST changes: -KETO10TAB PO
[2020-11-11] MEDS ORDERED: MORPHINE 2 MG/ML 1ML VIAL (J2270) IV ONE (22:20)
--- NOTE | 2020-11-11 22:30 | REPVR ---
PROCEDURE INFORMATION: Exam: XR Chest Exam date and time: 11/11/2020 9:48 PM Age: 45 years old Clinical indication: Pain; Angina pectoris; Additional info: Chest pain TECHNIQUE: Imaging protocol: XR of the chest. Views: 1 view. COMPARISON: CR PORTABLE CHEST X-RAY 10/21/2020 9:30 AM FINDINGS: Lungs: Degree of lung inflation is normal. No evidence of pulmonary edema. No focal consolidation or parenchymal lung mass. Pleural spaces: No pleural effusion or pneumothorax. Probable right pleural scarring, stable Heart/Mediastinum: Cardiac silhouette appears normal. No adenopathy or hilar mass. Bones/joints: Osseous structures show no concerning abnormality. IMPRESSION: No acute or focal cardiopulmonary process. Electronically signed by: Ministerio Stevens On 11/11/2020 22:29:43 PM
[2020-11-11 22:51] LABS: BASO % 0.3 % (0.0-1.0); EOS # 0.1 10^3/uL (0.0-0.5); EOS % 0.4 % (0.0-3.0); HEMATOCRIT 42.5 % (42.0-52.0); HEMOGLOBIN 14.5 g/dl (13.5-17.5); LYMPH % 6.7 % (24.0-44.0); MEAN CORPUSCULAR HEMOGLOBIN 29.7 pg (27.0-33.0); MEAN CORPUSCULAR HGB CONC 34.1 g/dl (32.0-36.5); MEAN CORPUSCULAR VOLUME 86.9 fl (80.0-96.0); MONO # 1.1 10^3/uL (0.0-0.8); MONO % 7.4 % (2.0-8.0); NEUTROPHILS # 12.6 10^3/uL (1.5-8.5); NEUTROPHILS % 84.7 % (36.0-66.0); PLATELET COUNT, AUTOMATED 243 10^3/uL (150-450); RED BLOOD COUNT 4.89 10^6/uL (4.30-6.10); WHITE BLOOD COUNT 14.8 10^3/uL (4.0-10.0)
[2020-11-11 23:05] LABS: INR 0.94; PROTHROMBIN TIME 12.8 SECONDS (12.5-14.3)
[2020-11-11 23:06] LABS: PARTIAL THROMBOPLASTIN TIME 29.8 SECONDS (24.2-38.5)
[2020-11-11 23:36] LABS: ALBUMIN 3.8 GM/DL (3.2-5.2); ALT/SGPT 65 U/L (12-78); BILIRUBIN,DIRECT < 0.1 MG/DL (0.0-0.2); BILIRUBIN,TOTAL 0.7 MG/DL (0.2-1.0); BLOOD UREA NITROGEN 21 MG/DL (7-18); CALCIUM LEVEL 8.5 MG/DL (8.5-10.1); CARBON DIOXIDE LEVEL 28 MEQ/L (21-32); CHLORIDE LEVEL 109 MEQ/L (98-107); CK-MB VALUE MASS 4.8 NG/ML (<3.6); CPK CREATINE PHOSPHOKINASE 254 U/L (39-308); CREATININE FOR GFR 0.92 MG/DL (0.70-1.30); GLOMERULAR FILTRATION RATE > 60.0 (>60); GLUCOSE, FASTING 96 MG/DL (70-100); LIPASE 55 U/L (73-393); MB/CK RELATIVE INDEX 1.89 (< OR =4); NT-PRO BNP 39 PG/ML (<125); POTASSIUM SERUM 4.6 MEQ/L (3.5-5.1); SODIUM LEVEL 141 MEQ/L (136-145); TOTAL PROTEIN 7.4 GM/DL (6.4-8.2); TROPONIN I < 0.02 NG/ML (< 0.10)
[2020-11-11] MEDS ORDERED: ALBUTEROL SULFATE 2.5 MG/0.5 ML INH NEB SOLN NEB ONE (23:40)
[2020-11-11] MEDS ORDERED: ISOVUE-370 76% 100ML VIAL As Ordered ONE (23:52)
--- NOTE | 2020-11-12 00:34 | REPVR ---
PROCEDURE INFORMATION: Exam: CTA Chest With Contrast Exam date and time: 11/11/2020 11:46 PM Age: 45 years old Clinical indication: Chest wall pain and right-sided; Additional info: Right chest pleuritic chest pain TECHNIQUE: Imaging protocol: Computed tomographic angiography of the chest with contrast. 3D rendering (Not supervised by radiologist): MIP and/or 3D reconstructed images were created by the technologist. Radiation optimization: All CT scans at this facility use at least one of these dose optimization techniques: automated exposure control; mA and/or kV adjustment per patient size (includes targeted exams where dose is matched to clinical indication); or iterative reconstruction. Contrast material: ISO; Contrast volume: 75 ml; Contrast route: INTRAVENOUS (IV); COMPARISON: CT ANGIO CHEST 10/21/2020 11:58 AM FINDINGS: Pulmonary arteries: Peripheral pulmonary artery evaluation limited by cardiac and respiratory motion artifact. Central pulmonary arteries show no intraluminal defect suggestive of clot. Aorta: No thoracic aortic aneurysm or dissection. Lungs: Focal 2 cm opacity at the posterior right lung base may represent scarring or rounded atelectasis and is unchanged over the interim. Linear scarring is also present at the lateral right lung base and a calcified granuloma is present adjacent. No central endobronchial lesion or focal airspace filling process. Pleural spaces: No pleural effusion or pneumothorax. Posterior right basilar pleural calcification and thickening is present. Heart: No overt cardiac enlargement or abnormal volume of pericardial fluid. Lymph nodes: No enlarged mediastinal lymph nodes. Bones/joints: Diffuse idiopathic skeletal hyperostosis (DISH) changes are present. Soft tissues: Unremarkable. IMPRESSION: 1. No evidence of acute, central pulmonary embolus. Peripheral pulmonary arterial evaluation is limited by cardiac and respiratory motion artifact. 2. Stable scarring and rounded atelectasis at the right lung base, identical in appearance compared to March 2020 Electronically signed by: Ministerio Stevens On 11/12/2020 00:34:10 AM
[2020-11-12] MEDS ORDERED: MORPHINE 4 MG/ML 1ML VIAL/SYRINGE (J2270) IV ONE (00:50)
--- NOTE | 2020-11-12 01:14 | REPVR ---
PROCEDURE INFORMATION: Exam: US Abdomen, Limited; Right Upper Quadrant Exam date and time: 11/12/2020 1:04 AM Age: 45 years old Clinical indication: Abdominal pain; Acute; Additional info: Ruq pain TECHNIQUE: Imaging protocol: US abdomen. Real time ultrasound with image documentation. Limited exam focused on the right upper quadrant. COMPARISON: PT PET/CT Skull/mid thigh 07/06/2020 3:41 PM FINDINGS: Liver: Liver is diffusely echogenic, without focal lesion. Gallbladder: Gallbladder demonstrates intraluminal calculi. No gallbladder wall thickening, with gallbladder wall measuring 2 mm. No adjacent fluid. Common bile duct: Common bile duct measures 4 mm in diameter. Pancreas: Pancreas is not visualized because of acoustic shadowing from bowel. Right kidney: Right kidney measures 11.4 cm in long axis. Right kidney appears normal. Intraperitoneal space: No free fluid. IMPRESSION: 1. Cholelithiasis. No biliary obstruction or evidence of acute cholecystitis. 2. Echogenic liver suggesting mild fatty infiltration Electronically signed by: Ministerio Stevens On 11/12/2020 01:14:26 AM
[2020-11-12] MEDS ORDERED: KETO10TAB PO (02:03)
[2020-11-12] MEDS ORDERED: OXYCODONE/APAP 5MG/325MG(BULK FOR ED) 1 TABLET PO ONE (02:05)
[2020-11-12 02:18] VITALS: BP 157/83
--- NOTE | 2020-11-12 17:31 | ECGEPIP ---
[facility] - ED Test Date: 2020-11-11 Pat Name: MATTHEW RODRIGUES Department: Room: - Gender: Male [employer]: ED : 1975 Requested By: KULWANT Horowitz Order Number: [id number] Reading MD: Kulwant Butler Measurements Intervals [place] Rate: 70 P: 15 VT: 142 QRS: 35 QRSD: 94 T: 35 QT: 362 QTc: 390 Interpretive Statements Normal sinus rhythm Nonspecific T wave abnormality Similar to tracing done 10-21-20 Electronically Signed on 11-12-2020 17:31:18 EDT by Kulwant Butler
== END 2020-11-12 02:30 | disposition home or self-care (01) ==
LOC: M ED 21:12
DX: R07.89 Other chest pain (principal); R11.0 Nausea; I10 Essential (primary) hypertension; J45.909 Unspecified asthma, uncomplicated; Z79.899 Other long term (current) drug therapy; Z88.8 Allergy status to other drugs, medicaments and biological substances; Z91.018 Allergy to other foods
CPT/HCPCS: 71045; 71275; 76705; 80048; 80076; 82550; 82553; 83690; 83880; 84443; 84484; 85025; 85610; 85730; 93005; 93041; 94640; 94760; 96374; 96376; 99285; J2270; Q9967

== ENCOUNTER → 2020-11-19 | Outpatient (REF) | payer OTHER ==
[~2020-11-19] MED LIST changes: +KETO10TAB PO
[2020-11-19 17:34] LABS: BASO # 0.1 10^3/uL (0.0-0.2); BASO % 0.7 % (0.0-1.0); EOS # 0.2 10^3/uL (0.0-0.5); EOS % 2.5 % (0.0-3.0); HEMATOCRIT 44.3 % (42.0-52.0); HEMOGLOBIN 14.8 g/dl (13.5-17.5); LYMPH # 1.2 10^3/uL (1.5-5.0); LYMPH % 13.7 % (24.0-44.0); MEAN CORPUSCULAR HEMOGLOBIN 29.6 pg (27.0-33.0); MEAN CORPUSCULAR HGB CONC 33.4 g/dl (32.0-36.5); MEAN CORPUSCULAR VOLUME 88.6 fl (80.0-96.0); MONO # 0.8 10^3/uL (0.0-0.8); MONO % 9.5 % (2.0-8.0); NEUTROPHILS # 6.3 10^3/uL (1.5-8.5); PLATELET COUNT, AUTOMATED 266 10^3/uL (150-450); WHITE BLOOD COUNT 8.7 10^3/uL (4.0-10.0)
[2020-11-19 17:59] LABS: ALBUMIN 3.7 GM/DL (3.2-5.2); ALT/SGPT 149 U/L (12-78); BILIRUBIN,TOTAL 0.8 MG/DL (0.2-1.0); BLOOD UREA NITROGEN 16 MG/DL (7-18); C REACTIVE PROTEIN QUANTITATIV 2.86 MG/DL (0.00-0.30); CARBON DIOXIDE LEVEL 29 MEQ/L (21-32); CHLORIDE LEVEL 108 MEQ/L (98-107); CREATININE FOR GFR 1.06 MG/DL (0.70-1.30); FERRITIN 179 NG/ML (26-388); GLOMERULAR FILTRATION RATE > 60.0 (>60); GLUCOSE, FASTING 82 MG/DL (70-100); SODIUM LEVEL 142 MEQ/L (136-145); TOTAL PROTEIN 7.4 GM/DL (6.4-8.2)
[2020-11-19 19:21] LABS: ERYTHROCYTE SEDIMENTATION RATE 14 mm/hr (0-15)
== END ==
LOC: M SFHCRHEU 15:06
PROVIDERS: ATTEND Internal Medicine Rheumatology
DX: M13.0 Polyarthritis, unspecified (principal)

== ENCOUNTER → 2021-04-07 | Outpatient (REF) | payer OTHER ==
[~2021-04-07] MED LIST changes: +DOXY-443 PO; -DOXY1CAP62 PO
== END ==
LOC: M LAB REF 22:08
PROVIDERS: ATTEND Physician Assistant
DX: R50.9 Fever, unspecified (principal); R53.83 Other fatigue

== ENCOUNTER → 2021-05-19 | Outpatient (REF) | payer OTHER ==
[~2021-05-19] MED LIST changes: +LOSA50TA28 PO; -LOSA50TA88 PO
[2021-05-19 12:57] LABS: BASO # 0.1 10^3/uL (0.0-0.2); BASO % 0.8 % (0.0-1.0); EOS # 0.2 10^3/uL (0.0-0.5); EOS % 2.1 % (0.0-3.0); HEMATOCRIT 47.7 % (42.0-52.0); HEMOGLOBIN 16.1 g/dl (13.5-17.5); LYMPH # 1.9 10^3/uL (1.5-5.0); LYMPH % 26.3 % (24.0-44.0); MEAN CORPUSCULAR HEMOGLOBIN 29.7 pg (27.0-33.0); MEAN CORPUSCULAR HGB CONC 33.8 g/dl (32.0-36.5); MONO # 0.8 10^3/uL (0.0-0.8); NEUTROPHILS # 4.3 10^3/uL (1.5-8.5); NEUTROPHILS % 59.7 % (36.0-66.0); PLATELET COUNT, AUTOMATED 235 10^3/uL (150-450); RED BLOOD COUNT 5.42 10^6/uL (4.30-6.10); WHITE BLOOD COUNT 7.2 10^3/uL (4.0-10.0)
[2021-05-19 13:49] LABS: ERYTHROCYTE SEDIMENTATION RATE 1 mm/hr (0-15)
[2021-05-19 14:15] LABS: ALT/SGPT 43 U/L (12-78); BILIRUBIN,TOTAL 0.6 MG/DL (0.2-1.0); BLOOD UREA NITROGEN 14 MG/DL (7-18); CALCIUM LEVEL 9.3 MG/DL (8.5-10.1); CARBON DIOXIDE LEVEL 27 MEQ/L (21-32); CHLORIDE LEVEL 108 MEQ/L (98-107); CREATININE FOR GFR 0.83 MG/DL (0.70-1.30); FERRITIN 100 NG/ML (26-388); GLOMERULAR FILTRATION RATE > 60.0 (>60); GLUCOSE, FASTING 87 MG/DL (70-100); POTASSIUM SERUM 4.6 MEQ/L (3.5-5.1); SODIUM LEVEL 139 MEQ/L (136-145); TOTAL PROTEIN 7.5 GM/DL (6.4-8.2)
== END ==
LOC: M SFHCRHEU 09:31
PROVIDERS: ATTEND Internal Medicine Rheumatology
DX: J90 Pleural effusion, not elsewhere classified (principal); R76.8 Other specified abnormal immunological findings in serum; E06.3 Autoimmune thyroiditis

== ENCOUNTER → 2021-05-26 | Outpatient (CLI) | payer OTHER | LOC: M PLAIMG 15:32 | PROVIDERS: ATTEND Internal Medicine Pulmonary Disease | DX: R91.8 Other nonspecific abnormal finding of lung field (principal) ==

== ENCOUNTER → 2021-12-29 | Outpatient (CLI) | payer OTHER | LOC: M RAD 07:36 | PROVIDERS: ATTEND Internal Medicine Pulmonary Disease | DX: R91.8 Other nonspecific abnormal finding of lung field (principal); K80.20 Calculus of gallbladder without cholecystitis without obstruction ==

== ENCOUNTER 2022-12-21 17:44 | Emergency (ER) | payer OTHER ==
[~2022-12-21] VITALS: Ht 182.9 cm; Wt 134.1 kg
[2022-12-21 17:45] VITALS: TEMP 97.7
[2022-12-21] MEDS ORDERED: OMEP40CA5 (18:03)
[2022-12-21] MEDS ORDERED: BUTA-198 (18:03)
[2022-12-21] MEDS ORDERED: LOSA100T46 (18:03)
[2022-12-21] MEDS ORDERED: BUDE10.7 (18:03)
[2022-12-21] MEDS ORDERED: LOSARTAN 50MG TABLET PO ONE (20:40)
[2022-12-21] MEDS ORDERED: PANTOPRAZOLE 40MG VIAL IV ONE (21:20)
[2022-12-21] MEDS ORDERED: KETOROLAC 30 MG/ML 1ML VIAL IV ONE (21:20)
[2022-12-21] MEDS ORDERED: ONDANSETRON 4MG 2ML VIAL IV ONE (21:20)
[2022-12-21] MEDS ORDERED: NS 1,000 ML IV ONE (21:20)
[2022-12-21 21:47] LABS: BASO # 0.1 10^3/uL (0.0-0.2); BASO % 0.9 % (0.0-1.0); EOS # 0.2 10^3/uL (0.0-0.5); EOS % 1.9 % (0.0-3.0); HEMATOCRIT 46.3 % (42.0-52.0); HEMOGLOBIN 15.7 g/dl (13.5-17.5); LYMPH # 2.3 10^3/uL (1.5-5.0); LYMPH % 26.3 % (24.0-44.0); MEAN CORPUSCULAR HEMOGLOBIN 28.7 pg (27.0-33.0); MEAN CORPUSCULAR HGB CONC 33.9 g/dl (32.0-36.5); MEAN CORPUSCULAR VOLUME 84.6 fl (80.0-96.0); MONO # 0.8 10^3/uL (0.0-0.8); MONO % 9.4 % (2.0-8.0); NEUTROPHILS # 5.4 10^3/uL (1.5-8.5); NEUTROPHILS % 61.3 % (36.0-66.0); PLATELET COUNT, AUTOMATED 228 10^3/uL (150-450); RED BLOOD COUNT 5.47 10^6/uL (4.30-6.10); WHITE BLOOD COUNT 8.8 10^3/uL (4.0-10.0)
[2022-12-21 21:55] LABS: ALBUMIN 4.2 G/DL (3.2-5.2); ALKALINE PHOSPHATASE 40 U/L (46-116); ALT/SGPT 39 U/L (7.0-40); AST/SGOT 42 U/L (<34); BILIRUBIN,DIRECT 0.3 MG/DL (<0.4); BILIRUBIN,TOTAL 1.1 MG/DL (0.3-1.2); BLOOD UREA NITROGEN 13 MG/DL (9-23); CALCIUM LEVEL 9.4 MG/DL (8.5-10.1); CARBON DIOXIDE LEVEL 28 MMOL/L (20-31); CHLORIDE LEVEL 104 MMOL/L (98-107); CK-MB VALUE MASS 5.5 NG/ML (<3.6); CPK CREATINE PHOSPHOKINASE 320 U/L (46-171); CREATININE FOR GFR 0.95 MG/DL (0.70-1.30); GLOMERULAR FILTRATION RATE > 60.0 (>60); GLUCOSE, FASTING 77 MG/DL (60-100); LIPASE 28 U/L (12-53); MB/CK RELATIVE INDEX 1.71 (< OR =4); POTASSIUM SERUM 4.7 MMOL/L (3.5-5.1); SODIUM LEVEL 139 MMOL/L (136-145); TOTAL PROTEIN 7.2 G/DL (5.7-8.2)
[2022-12-21 22:29] LABS: RSV AMPLIFICATION NEGATIVE (NEGATIVE)
[2022-12-21] MEDS ORDERED: hydrALAZINE 20MG/ML 1ML VIAL IV ONE (22:35)
[2022-12-21 22:47] VITALS: BP 170/77
[2022-12-21 23:45] VITALS: BP 168/79
[2022-12-21] MEDS ORDERED: LOSA100T5 PO (23:45)
[2022-12-21] MEDS ORDERED: ONDA4TAB6 PO (23:45)
[2022-12-21] MEDS ORDERED: PANT-23 PO (23:45)
[2022-12-21] MEDS ORDERED: KETO10TAB PO (23:45)
[2022-12-21 23:46] VITALS: O2SAT 98
== END 2022-12-21 23:55 | disposition home or self-care (01) ==
LOC: M ED 17:44
DX: K80.20 Calculus of gallbladder without cholecystitis without obstruction (principal); I10 Essential (primary) hypertension; J44.9 Chronic obstructive pulmonary disease, unspecified; K21.9 Gastro-esophageal reflux disease without esophagitis; R93.1 Abnormal findings on diagnostic imaging of heart and coronary circulation; Z87.891 Personal history of nicotine dependence; Z88.8 Allergy status to other drugs, medicaments and biological substances; Z91.018 Allergy to other foods; Z79.51 Long term (current) use of inhaled steroids; Z79.899 Other long term (current) drug therapy
CPT/HCPCS: 71046; 76705; 80048; 80076; 82550; 82553; 83605; 83690; 84484; 85025; 87040; 87631; 93005; 96374; 96375; 99284; C9113; J0360; J1885; J2405

== ENCOUNTER 2023-01-26 09:37 | Day surgery (SDC) | payer OTHER ==
[~2023-01-26] VITALS: Ht 182.9 cm; Wt 129.7 kg
[~2023-01-26 09:37] MED LIST changes: +BUDE10.7; +BUTA-198; +IBUP-1022 PO; +LOSA100T46; +LOSA100T5 PO; +OMEP40CA5; +PANT-23 PO; +UNRESOLVED CLARIFICATION ENTRY XX SCH; +ceFAZolin SOD 1 GM in D5W MINI-BAG PLUS 50 ML IV ONE; +ceFAZolin SOD 2 GM in IV 1 EA IV ONE; +dayquil PO
[2023-01-26] MEDS ORDERED: LR 1,000 ML IV SCH ×2 (09:50→13:50)
[2023-01-26] MEDS ORDERED: ROCURONIUM BROMIDE 50MG/5ML VIAL As Ordered ONE ×2 (10:37→12:49)
[2023-01-26] MEDS ORDERED: LIDOCAINE 2% 100MG/5ML SDV (FOR ANES.) As Ordered ONE (10:37)
[2023-01-26] MEDS ORDERED: propofoL 200 MG/20 ML VIAL As Ordered ONE (10:37)
[2023-01-26] MEDS ORDERED: fentaNYL 250 MCG/5 ML INJECTION As Ordered ONE (10:38)
[2023-01-26] MEDS ORDERED: MIDAZOLAM INJ 2MG/2ML VIAL As Ordered ONE (10:38)
[2023-01-26] MEDS ORDERED: SUGAMMADEX SODIUM 500 MG/5 ML VIAL (BRIDION) As Ordered ONE (12:13)
[2023-01-26] MEDS ORDERED: ONDANSETRON 4MG 2ML VIAL As Ordered ONE (12:14)
[2023-01-26] MEDS ORDERED: KETOROLAC 60MG 2ML VIAL As Ordered ONE (12:14)
[2023-01-26] MEDS ORDERED: ACETAMINOPHEN 1000MG 100ML IV BAG As Ordered ONE (12:14)
[2023-01-26] MEDS ORDERED: DESFLURANE 240 ML INHALANT As Ordered ONE (12:28)
[2023-01-26] MEDS ORDERED: fentaNYL 100 MCG/2 ML INJECTION As Ordered ONE (13:31)
[2023-01-26] MEDS ORDERED: oxyCODONE 5MG TAB PO PRN (13:50)
[2023-01-26] MEDS ORDERED: ONDANSETRON 4MG 2ML VIAL IV PRN (13:50)
[2023-01-26] MEDS: fentaNYL 100 MCG/2 ML INJECTION IV PRN ×4 (14:19→14:40)
[2023-01-26] MEDS: HYDROMORPHONE HCL 0.5 MG/ 0.5 ML SYRINGE IV PRN ×4 (14:47→15:08)
[2023-01-26] MEDS ORDERED: NORCO, ANEXSIA 5/325MG TABLET (HYDROcodone/ACETAMINOPHEN) PO PRN (14:55)
[2023-01-26] MEDS ORDERED: METOCLOPRAMIDE INJ 10MG/2ML VIAL IV ONE (15:45)
[2023-01-26 16:34] VITALS: BP 135/67; TEMP 97.6; O2SAT 96
== END 2023-01-26 16:43 | disposition home or self-care (01) ==
LOC: M SDC 09:37
PROVIDERS: ATTEND Surgery
DX: K80.10 Calculus of gallbladder with chronic cholecystitis without obstruction (principal); K42.9 Umbilical hernia without obstruction or gangrene; I10 Essential (primary) hypertension; J44.9 Chronic obstructive pulmonary disease, unspecified; R06.83 Snoring; Z79.899 Other long term (current) drug therapy; Z87.891 Personal history of nicotine dependence; Z88.8 Allergy status to other drugs, medicaments and biological substances
CPT/HCPCS: 47562; 49593; 88304; J0131; J0665; J0690; J1100; J1170; J1885; J2250; J2405; J2765; J3010; S2900

== ENCOUNTER → 2023-02-15 | Day surgery (SDC) | payer OTHER ==
[~2023-02-15] VITALS: Ht 182.9 cm; Wt 126.3 kg
[~2023-02-15] MED LIST changes: +GNPCAP31 PO; +LIDOCAINE 2% 100MG/5ML SDV (FOR ANES.) As Ordered ONE; +NS 1,000 ML IV ONE; -UNRESOLVED CLARIFICATION ENTRY XX SCH; -ceFAZolin SOD 1 GM in D5W MINI-BAG PLUS 50 ML IV ONE; -ceFAZolin SOD 2 GM in IV 1 EA IV ONE; +fentaNYL 100 MCG/2 ML INJECTION As Ordered ONE; +propofoL 500 MG/50 ML VIAL As Ordered ONE
[2023-02-15 12:05] VITALS: TEMP 98.9
[2023-02-15 12:20] VITALS: BP 135/77; O2SAT 94
== END | disposition home or self-care (01) ==
LOC: M OPP 09:44
PROVIDERS: ATTEND Surgery
DX: Z12.11 Encounter for screening for malignant neoplasm of colon (principal); K63.5 Polyp of colon; K64.1 Second degree hemorrhoids; K57.30 Diverticulosis of large intestine without perforation or abscess without bleeding; K52.9 Noninfective gastroenteritis and colitis, unspecified; K29.70 Gastritis, unspecified, without bleeding; I10 Essential (primary) hypertension; K21.9 Gastro-esophageal reflux disease without esophagitis; J44.9 Chronic obstructive pulmonary disease, unspecified; Z88.8 Allergy status to other drugs, medicaments and biological substances; Z91.018 Allergy to other foods; Z79.899 Other long term (current) drug therapy
CPT/HCPCS: 43239; 45380; 88305; J3010

== ENCOUNTER → 2024-03-26 | Outpatient (CLI) | payer BC ==
[~2024-03-26] MED LIST changes: +DOXY-441 PO; -DOXY-443 PO; -LIDOCAINE 2% 100MG/5ML SDV (FOR ANES.) As Ordered ONE; -NS 1,000 ML IV ONE; +ONDA-282 PO; -ONDA4TAB6 PO; -fentaNYL 100 MCG/2 ML INJECTION As Ordered ONE; -propofoL 500 MG/50 ML VIAL As Ordered ONE
== END ==
LOC: M PLAIMG 16:34
DX: R10.11 Right upper quadrant pain (principal)